=== PATIENT | male | born 1935 | race Caucasian/White ===

== ENCOUNTER 2022-05-27 20:23 | Emergency (ER) | payer MEDICARE, BC ==
[2022-05-27 21:58] LABS: ESTIMATED GFR 58 mL/min (>60)
[2022-05-27] MEDS ORDERED: Cephalexin 250 MG Cap PO ONE (22:34)
== END 2022-05-27 22:45 | disposition home or self-care (01) ==
LOC: JP.ED 20:23
DX: N30.01 Acute cystitis with hematuria (principal); Z20.822 Contact with and (suspected) exposure to COVID-19
CPT/HCPCS: 36415; 80053; 81001; 85025; 86140; 87086; 87088; 87186; 99283; A9270; U0002